=== PATIENT | female | born 2005 | race African-American/Black ===

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

== ENCOUNTER 2023-06-28 11:23 | Outpatient (AMB) | payer BC, SELFPAY ==
[2023-06-28 11:25] VITALS: BP 92/78; BMI 21.1
--- NOTE | 2023-06-28 11:25 | A.OFFVIS_ITS ---
Intake Vital Signs 06/28/23 11:25 Height 5 ft 7 in Weight 134 lb 8 oz BMI 21.1 BP 92/78 Blood Pressure Location Rt brachial Position Sitting Intake Visit Reasons: 4m f/up Headache Intake Note: Patient presents for 4 month follow up headache. patient headaches are better,she found out her headache triggers are sunlight and eating late. Allergies nickel Allergy (Verified 06/28/23 11:28) Rash Medication List - Last Reconciled 07/18/23 by BERNY Ahumada albuterol sulfate 90 mcg/actuation 1 inh inhalation QID amitriptyline 10 mg PO BEDTIME 90 days epinephrine IM ibuprofen 600 mg PO Q6H PRN magnesium oxide 400 mg PO DAILY 30 days norethindrone ac-eth estradiol 1.5-30 mg-mcg (Junel) 1 tab PO DAILY rimegepant (Nurtec ODT) 75 mg PO ONCE PRN 30 days HPI HPI Comments History of Present Illness Details 18-yr-old female presents for f/u visit. Pt denies any significant interval medical changes. No changes in right lower extremity weakness. She is having 2-3 more severe headaches, which last 2-3 days each, per month. Migraines triggered by not eating and lights. Notes she forgets to take the Amitriptyline regularly. Nurtec is helpful. Baseline headache characteristics: Mild to moderate to severe sharp pain over the frontal region or all over the head. A/w eyes feel heavy, photophobia, phonophobia, nausea, dizziness, tiredness. [facility] Medical History Scoliosis Surgical History History of hernia surgery H/O umbilical hernia repair Family History Mother Glaucoma Anemia Father HTN (hypertension) Sister Protein S deficiency Social History Alcohol intake: current Alcohol intake frequency: other Patient Tobacco Use Status: Never used Tobacco Physical Exam Vital Signs: Last Vital Signs BP 92/78 06/28/23 11:25 BMI result Body Mass Index 21.1 Const General: cooperative and no acute distress Orientation/consciousness: patient oriented x3 Resp Effort & Inspection: normal respiratory effort and able to speak in complete sen tences Neuro General: patient oriented x3 Cranial nerves: Yes CN's II-XII intact bilaterally Cognition (Neuro): normal cognition Psych Appearance: grossly normal Mental Status: mental status grossly normal Speech and movement: Normal speech and movement present Affect: normal affect Attitude: cooperative Assessment & Plan Assessment & Plan (1) Migraine without aura: Code(s): G43.009 - Migraine without aura, not intractable, without status migrainosus (2) White matter abnormality on MRI of brain: Code(s): R90.82 - White matter disease, unspecified (3) Hyperreflexia: Code(s): R29.2 - Abnormal reflex Plan For migraine prevention: Start Emgality 240 mg subcu x1, then in 1 month 120 mg subcu q.month. May stop amitriptyline 10 mg q.h.s.- as even with taking more regularly, it is not fully effective. Can not increase dose further due to constipation. Continue magnesium 400 mg q.h.s.. Previous tx trials- Riboflavin- stopped d/t urine discoloration. Preventative migraine treatment contraindications: Beta-blockers due to asthma. Aimovig due to constipation. ? For acute migraine tx: Nurtec ODT 75mg qd prn migraine, may adjunct w/ Tylenol, Ibuprofen, or Aleve. Previous acute migraine tx trials: Sumatriptan 100mg- ineffective, Rizatriptan 10mg- ineffective and not tolerated (made her feel fuzzy). ? For intracerebral white matter lesions- Previous brain and c-spine MRI- non-specific scattered foci of nonenhancing T2/FLAIR hyperintensity in the supratentorial white matter. And multilevel small cervical disc protrusions and mild leftward spinal curvature w/o cord signal abnormality. Will monitor. RLE hyperreflexia and weakness: Likely secondary to h/o scoliosis repair. No interval s/s worrisome for a central demyelinating process, will monitor. Future considerations- t-spine MRI, LP ? f/u in 6 months or sooner prn Coding Level of Care Code Est Pt Level 4 (85529) Diagnoses Migraine without aura G43.009 White matter abnormality on MRI of brain R90.82 Hyperreflexia R29.2
== END 2023-06-28 12:28 | disposition home or self-care (01) ==
PROVIDERS: PCP Internal Medicine; Visit Provider Nurse Practitioner Family
DX: G43.009 Migraine without aura, not intractable, without status migrainosus (principal); R90.82 White matter disease, unspecified; R29.2 Abnormal reflex
CPT/HCPCS: 99214

== ENCOUNTER → 2023-06-28 11:23 | Outpatient (BNVA) | payer BC, SELFPAY | PROVIDERS: PCP Internal Medicine; Visit Provider Nurse Practitioner Family ==

== ENCOUNTER 2023-11-25 07:58 | Outpatient (AMB) | payer OTHER, SELFPAY ==
[2023-11-25 08:10] VITALS: BMI 20.8
--- NOTE | 2023-11-25 08:10 | MHC.OFFVIS ---
Vital Signs 11/25/23 08:10 Height 5 ft 7 in Weight 133 lb BMI 20.8 Intake Visit Reasons: Follow up Headache-CONF Intake Note: Patient presents for follow up headaches. Allergies nickel Allergy (Verified 11/25/23 08:13) Rash Medication List - Last Reconciled 11/25/23 by BERNY Ahumada albuterol sulfate 90 mcg/actuation 1 inh inhalation QID amitriptyline 10 mg PO BEDTIME 90 days epinephrine IM [id number] (Emgality Pen) 120 mg subcut ONCE 90 days ibuprofen 600 mg PO Q6H PRN magnesium oxide 400 mg PO DAILY 30 days norethindrone ac-eth estradiol 1.5-30 mg-mcg (June) 1 tab PO DAILY rimegepant (Nurtec ODT) 75 mg PO ONCE PRN 30 days HPI Comments Details: 18-yr-old female presents for f/u visit. Pt denies any significant interval medical changes. 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 In the past month, she has had 2 migraine/headache days per week. Baseline headache characteristics: Mild to moderate to severe sharp pain over the frontal region or all over the head. A/w eyes feel heavy, photophobia, phonophobia, nausea, dizziness, tiredness. She is still in school- plans to study law. She does not some bruxism, worse if more anxious. Also having some more fragmented sleep. Denies loud snoring. She is doing PT, for back tightness, which helps but then her back becomes tight again. [facility] Medical History Scoliosis Surgical History History of hernia surgery H/O umbilical hernia repair Family History Mother Glaucoma Anemia Father HTN (hypertension) Sister Protein S deficiency Social History Alcohol intake: current Alcohol intake frequency: other Patient Tobacco Use Status: Never used Tobacco Physical Exam Vital Signs: BMI result Body Mass Index 20.8 Const General: cooperative and no acute distress Orientation/consciousness: patient oriented x3 Resp Effort & Inspection: normal respiratory effort and able to speak in complete sentences Neuro General: patient oriented x3 Cranial nerves: Yes CN's II-XII intact bilaterally Cognition (Neuro): normal cognition Motor exam (neuro): 5/5 motor strength present throughout Deep tendon reflexes (DTR's): Right triceps reflex intensity grade: 2+, Left triceps reflex intensity grade: 2+, Rt Biceps (C5, C6): 2+, Left biceps reflex intensity grade: 2+, Right brachioradialis reflex intensity grade: 2+, Left brachioradialis reflex intensity grade: 2+, Right patellar reflex intensity grade: 3+, Left patellar reflex intensity grade: 3+, Right ankle reflex intensity grade: 2+ and Left ankle reflex intensity grade: 2+ Psych Appearance: grossly normal Mental Status: mental status grossly normal Speech and movement: Normal speech and movement present Affect: normal affect Attitude: cooperative Assessment & Plan Assessment & Plan (1) Migraine without aura: Code(s): G43.009 - Migraine without aura, not intractable, without status migrainosus Category: Medical (2) Hyperreflexia: Code(s): R29.2 - Abnormal reflex Category: Medical (3) Bruxism: Code(s): F45.8 - Other somatoform disorders Category: Medical (4) Sleep difficulties: Code(s): G47.9 - Sleep disorder, unspecified Category: Medical Plan For migraine prevention: Avoid known triggers as able, such as skipping meals. Again start Emgality 240 mg subcu x1, then in 1 month 120 mg subcu q.month. Magnesium 400 mg q.h.s.. Previous tx trials- Riboflavin- stopped d/t urine discoloration. Amitriptyline 10mg not effective and not tolerated. Preventative migraine treatment contraindications: Beta-blockers due to asthma. Aimovig due to constipation. ? For acute migraine tx: Nurtec ODT 75mg qd prn migraine, may adjunct w/ Tylenol, Ibuprofen, or Aleve. Previous acute migraine tx trials: Sumatriptan 100mg- ineffective, Rizatriptan 10mg- ineffective and not tolerated (made her feel fuzzy). For sleep: Trial mouth guard for bruxism. Pt may benefit from reading/listening to Say [place] to Insomnia by Dr Julian Odell or similar CBTi resources. ? For intracerebral white matter lesions- Previous brain and c-spine MRI- non-specific scattered foci of nonenhancing T2/FLAIR hyperintensity in the supratentorial white matter. And multilevel small cervical disc protrusions and mild leftward spinal curvature w/o cord signal abnormality. Will monitor. ? RLE hyperreflexia, weakness, muscle tightness: Trial Baclofen 5-10mg qhs - may help bruxism as well. Continue PT. Likely secondary to h/o scoliosis repair. No interval s/s worrisome for a central demyelinating process, will monitor. Future considerations- t-spine MRI, LP ? f/u in 6 months or sooner prn Medications: New baclofen 5 - 10 mg (1 - 2 x 5 mg) PO BEDTIME PRN 60 tabs 1RF muscle spasm 30 days Coding Level of Care Code Est Pt Level 4 (24598) Diagnoses Migraine without aura G43.009 Hyperreflexia R29.2 Bruxism F45.8 Sleep difficulties G47.9
== END 2023-11-25 08:47 | disposition home or self-care (01) ==
PROVIDERS: PCP Internal Medicine; Visit Provider Nurse Practitioner Family
DX: G43.009 Migraine without aura, not intractable, without status migrainosus (principal); R29.2 Abnormal reflex; F45.8 Other somatoform disorders; G47.9 Sleep disorder, unspecified
CPT/HCPCS: 99214

== ENCOUNTER → 2023-11-25 07:58 | Outpatient (BNVA) | payer OTHER, SELFPAY | PROVIDERS: PCP Internal Medicine; Visit Provider Nurse Practitioner Family | DX: G43.009 Migraine without aura, not intractable, without status migrainosus (principal); G47.9 Sleep disorder, unspecified; R29.2 Abnormal reflex; F45.8 Other somatoform disorders | CPT/HCPCS: 99212 ==